=== PATIENT | male | born 1950 | race Two or more races ===

== ENCOUNTER 2018-10-14 08:21 | Day surgery (SDC) | payer OTHER ==
[~2018-10-14] VITALS: Ht 175.3 cm; Wt 111.1 kg
[~2018-10-14 08:21] MED LIST: INSLANTI SC; INSU100I4 SC; SIMV-13 PO
[2018-10-14] MEDS ORDERED: LIDOCAINE 2%HCL (LOCAL ANESTH.) INJ 20ML MDV ONE (10:06)
[2018-10-14] MEDS ORDERED: IODIXANOL 320MG/ML 100ML BTL IV ONE ×2 (10:06→10:07)
[2018-10-14] MEDS ORDERED: VERAPAMIL 2.5MG/ML INJ 2ML VIAL IV ONE (10:20)
[2018-10-14] MEDS ORDERED: fentaNYL CITRATE 100 MCG/2 ML VL ONE (10:20)
[2018-10-14] MEDS ORDERED: ANGIOMAX 250 MG VIAL IV ONE (10:20)
[2018-10-14] MEDS ORDERED: MIDAZOLAM HCL 1MG/1ML-2 ML VIAL ONE (10:20)
[2018-10-14] MEDS ORDERED: HEPARIN SODIUM (PORCINE) 5000 UNITS/ML 1ML VIAL ONE (10:41)
[2018-10-14] MEDS ORDERED: HYDROcodone-ACET 5/325MG TAB PO PRN (11:15)
[2018-10-14] MEDS ORDERED: ACETAMINOPHEN 500 MG TAB PO PRN (11:15)
== END 2018-10-14 12:50 | disposition home or self-care (01) ==
LOC: CATH 08:21
PROVIDERS: ATTEND Internal Medicine
DX: R94.39 Abnormal result of other cardiovascular function study (principal); I25.2 Old myocardial infarction; E78.5 Hyperlipidemia, unspecified; E11.9 Type 2 diabetes mellitus without complications; J44.9 Chronic obstructive pulmonary disease, unspecified; Z87.891 Personal history of nicotine dependence; Z79.899 Other long term (current) drug therapy
CPT/HCPCS: 93005; 93458; 99152; 99153; A6257; C1769; C1887; C1894; J1644; J2250; J3010; J7030; Q9967